=== PATIENT | male | born 1975 | race Caucasian/White ===

== ENCOUNTER 2018-05-06 10:58 | Emergency (ER) | payer SELFPAY ==
--- NOTE | 2018-05-06 11:04 | EDPHY ---
H & P Time Seen by Provider: 05/06/18 10:59 HPI/ROS: CHIEF COMPLAINT: Left hip pain HISTORY OF PRESENT ILLNESS: 43-year-old homeless male history of frequent alcohol abuse, chronic left hip pain, arrives via ambulance from [facility] where an ambulance was called due to his left hip pain. States that he walked in took the bus to the urgent care. He has prior history chronic left hip pain has had intra-articular injection most recently approximately 1 month ago at [facility] in [place]. He denies acute trauma or fall. She denies fever chills. Denies were testicle pain. Denies flu-like symptoms. Denies IV drug use. Admits to smoking methamphetamine use last evening.. Has not taking his antihypertensive other medications in a few days. PRIMARY CARE PROVIDER:[facility] in [place] REVIEW OF SYSTEMS: 10 systems reviewed and negative with the exception of the elements mentioned in the history of present illness PAST MEDICAL & SURGICAL HISTORY: chronic left hip pain SOCIAL HISTORY:Lives at the long term. PHYSICAL EXAM (Prior to examination, patient consented to physical exam, hands were washed and my usual and customary physical exam procedures followed) 1) GENERAL: Alert and oriented. Appears to be in no acute distress. 2) HEAD: Normocephalic, atraumatic 3) HEENT: Pupils equal, round, reactive to light bilaterally. Sclera anicteric. 4) NECK: Full range of motion, no meningeal signs. 5) LUNGS: Clear auscultation bilaterally, no wheezes, no rhonchi, no retractions. 6) HEART: Regular rate and rhythm, no murmur, no heave, no gallop. 7) ABDOMEN: No guarding, no rebound, no focal tenderness, negative McBurney's, negative Casey's, negative Rovsing's, negative peritoneal sign, 8) MUSCULOSKELETAL: Left lower extremity: No pain with palpation to the left inguinal region. No mass. No pain with axial loading of the acetabulum on left side. Does have reproducible pain with range of motion of the femur on acetabulum on the left. There is no shortening. No leg length discrepancy. Soft compartments. DP PT pulses present and brisk. Normal coloration and temperature overlying the left hip. Otherwise Moving all extremities, no focal areas of tenderness, no obvious trauma. No peripheral edema or discoloration. 9) BACK: No CVA tenderness, no midline vertebral tenderness, no fluctuance, no step-off, no obvious trauma, no visual or palpable abnormality. 10) SKIN: No rash, no petechiae. 11) Psychiatric: Patient is oriented X 3, there is no agitation. DIFFERENTIAL DIAGNOSIS: In no particular order including but not limited to septic arthritis, inflammatory arthritis, DJD, acute exacerbation chronic pain Constitutional: Initial Vital Signs Temperature (C) 36.6 C 05/06/18 11:06 Heart Rate 96 05/06/18 11:06 Respiratory Rate 14 05/06/18 11:06 Blood Pressure 196/147 H 05/06/18 11:06 O2 Sat (%) 96 05/06/18 11:06 O2 Delivery Mode Room Air Allergies/Adverse Reactions: No Known Allergies Allergy (Verified 05/06/18 11:05) Home Medications: Medication Instructions Recorded Bp Med 04/18/11 Medical Decision Making - Diagnostics Imaging Results: Imaging Impressions Hip X-Ray 05/06/18 11:09 Impression: Severe left hip osteoarthritis versus CPPD arthropathy. Findings discussed with Emergency Department physician gallery assistant, Abisai Veronica PA-C on 05/06/2018, 12:43. ED Course/Re-evaluation: 11:18 a.m.: I reviewed the patient's old medical records accessed via [employer] specifically from [facility]. He has multiple medications which he states he has not been compliant with any of particularly of interest at this time is his hypertensive medication, hydrochlorothiazide 25 mg once daily and lisinopril 40 mg once daily. He is hypertensive at this time with no complaints of chest pain, abdominal pain, headache, dyspnea. Will administer these medications to the patient. Will hold on opiates to the patient given his polysubstance abuse history. 12:40 p.m.: I observed the patient ambulating to the bathroom. Patient would like to leave the emergency department. He has been given his at hypertensive medication and his blood pressure has trended downward although remains elevated. I stressed the importance of staying compliant with his medication and keeping track was blood pressure. At this time, doubt hypertensive crisis. I Discussed his imaging results with him. I think that septic arthritis is less than likely this patient. I Do not think that more advanced imaging or further diagnostic studies are indicated at this time. Strongly recommend he stay compliant with medications, recommend he avoid street drugs including methamphetamine. He feels comfortable being discharged. Definitely if he develops new or worsening symptoms, fever chills, needs to seek immediate medical attention. Patient feels comfortable being discharged. All questions and concerns addressed by myself. Patient given my usual and customary discharge precautions and instructions regarding their clinical impression. Care of patient under supervision of secondary supervising physician Dr Edward . - Data Points Medications Given: Discontinued Medications Al Hydroxide/Mg Hydroxide (Maalox Susp) 30 ml PO ONCE ONE Stop: 05/06/18 13:11 Last Admin: 05/06/18 13:13 Dose: 30 ml Hydrochlorothiazide (Hydrochlorothiazide) 25 mg PO EDNOW ONE Stop: 05/06/18 11:18 Last Admin: 05/06/18 11:20 Dose: 25 mg Hyoscyamine Sulfate (Levsin, Hyomax-Sl) 0.25 mg PO ONCE ONE Stop: 05/06/18 13:11 Last Admin: 05/06/18 13:13 Dose: 0.25 mg Lidocaine (Lidocaine 2% Viscous) 15 ml PO ONCE ONE Stop: 05/06/18 13:11 Last Admin: 05/06/18 13:13 Dose: 15 ml Lisinopril (Zestril) 40 mg PO EDNOW ONE Stop: 05/06/18 11:16 Last Admin: 05/06/18 11:20 Dose: 40 mg Oxycodone/Acetaminophen (Percocet 5/325) 1 tab PO EDNOW ONE Stop: 05/06/18 11:10 Last Admin: 05/06/18 12:10 Dose: Not Given Departure - Departure Disposition: Home, Routine, Self-Care Clinical Impression: Chronic left hip pain Condition: Good Instructions: Hip Pain (ED) Additional Instructions: Do not use methamphetamine, do not use street drugs. Take your prescribed medications as directed. Referrals: Donavon Hoang MD [Medical Doctor] - As per Instructions
[2018-05-06] MEDS ORDERED: OXYCODONE/APAP 5/325 TAB PO ONE (11:09)
[2018-05-06] MEDS ORDERED: LISINOPRIL 20 MG TAB PO ONE (11:15)
[2018-05-06] MEDS ORDERED: HYDROCHLOROTHIAZIDE 25 MG TAB PO ONE (11:17)
[2018-05-06] MEDS ORDERED: MAG HYDROX/AL HYDROX/SIMETH 30 ML UDCUP PO ONE (13:10)
[2018-05-06] MEDS ORDERED: HYOSCYAMINE SULFATE 0.125 MG TAB PO ONE (13:10)
[2018-05-06] MEDS ORDERED: LIDOCAINE 2% VISCOUS 15 ML UDCUP PO ONE (13:10)
[2018-05-06 13:23] VITALS: BP 163/133
== END 2018-05-06 13:26 | disposition home or self-care (01) ==
LOC: EDUNIT#
DX: M16.12 Unilateral primary osteoarthritis, left hip (principal); I10 Essential (primary) hypertension; F10.10 Alcohol abuse, uncomplicated; Z59.0 Homelessness; Z91.14 Patient's other noncompliance with medication regimen